=== PATIENT | female | born 2000 | race Caucasian/White ===

== ENCOUNTER 2021-09-16 20:23 | Observation (INO) | payer OTHER ==
[2021-09-16 21:17] LABS: CLARITY URINE CLEAR (CLEAR); COLOR URINE YELLOW (YELLOW); KETONES URINE NEGATIVE (NEGATIVE); LEUKOCYTE ESTERASE URINE NEGATIVE (NEGATIVE); NITRITE URINE NEGATIVE (NEGATIVE); OCCULT BLOOD URINE NEGATIVE (NEGATIVE); PH URINE 6.5 (4.5-8.0); PROTEIN URINE NEGATIVE (NEGATIVE); SPECIFIC GRAVITY URINE 1.008 (1.005-1.030); UROBILINOGEN URINE 0.2 E.U./dL (0.2-1.0)
== END 2021-09-16 22:02 | disposition home or self-care (01) ==
LOC: 8 EST LDRP 20:23
PROVIDERS: ADMIT Obstetrics & Gynecology; ATTEND Obstetrics & Gynecology
DX: O26.892 Other specified pregnancy related conditions, second trimester (principal); R10.9 Unspecified abdominal pain; Z3A.25 25 weeks gestation of pregnancy
CPT/HCPCS: 59025; 81003; G0378; 99281

== ENCOUNTER 2021-12-09 06:13 | Inpatient (IN) | payer MEDICAID, OTHER ==
[~2021-12-09] VITALS: Ht 157.5 cm; Wt 68.0 kg
[2021-12-09] MEDS ORDERED: PENICILLIN G POTASSIUM 5 MMU in DEXT 5% WATER 100 ML IV SCH (07:15)
[2021-12-09] MEDS ORDERED: BUTORPHANOL TARTRATE 2 MG/ML VIAL IV PRN (07:15)
[2021-12-09] MEDS ORDERED: NALOXONE HCL 0.4 MG/ML 1ML VIAL IM PRN (07:15)
[2021-12-09] MEDS ORDERED: METHYLERGONOVINE MALEATE 0.2 MG/ML IM PRN (07:15)
[2021-12-09] MEDS ORDERED: LIDOCAINE HCL 1% 20ML VIAL (Pyxis) INJ INFIL SCH (07:15)
[2021-12-09] MEDS ORDERED: CARBOPROST TROMETHAMINE 250 MCG/ML AMPUL IM PRN (07:15)
[2021-12-09] MEDS ORDERED: LABETALOL HCL 5MG/ML VIAL 20ML IV PRN ×3 (08:15)
[2021-12-09] MEDS ORDERED: MAGNESIUM 2 G PREMIX 50 ML IV SCH (08:15)
[2021-12-09] MEDS ORDERED: MAGNESIUM 4 G PREMIX 100 ML IV SCH (08:15)
[2021-12-09] MEDS ORDERED: MAGNESIUM 20 G PREMIX (L & D) 500 ML IV SCH (08:15)
[2021-12-09 08:25] LABS: HEMATOCRIT. 30.8 % (36.0-48.0); HEMOGLOBIN. 9.6 g/dL (12.0-16.0); MEAN CORPUSCULAR HEMOGLOBIN 21.6 pg (28.0-32.0); MEAN CORPUSCULAR VOLUME 69.1 fL (81.0-99.0); MEAN PLATELET VOLUME 7.5 fl (7.4-10.4); PLATELET 242 x1000/uL (130-400); RED BLOOD CELL COUNT 4.45 mill/uL (4.2-5.4); RED CELL DISTRIBUTION WIDTH 16.9 % (11.6-14.6)
[2021-12-09 08:28] LABS: CHLORIDE 108 mEq/L (98-107)
[2021-12-09] MEDS: LACTATED RINGERS 1,000 ML IV SCH ×2 (08:39→12:26)
[2021-12-09 08:41] LABS: FIBRINOGEN 149 mg/dL (200-400); INR 1.1; PARTIAL THROMBOPLASTIN TIME 33.5 sec (23.4-31.0); PROTHROMBIN TIME 11.5 sec (9.6-11.0)
[2021-12-09 09:49] LABS: D-DIMER > 35.20 mg/L FEU (<0.50)
[2021-12-09 10:33] LABS: HEPATITIS B SURFACE ANTIGEN NEGATIVE
[2021-12-09 14:12] LABS: CLARITY URINE CLOUDY (CLEAR); COLOR URINE ORANGE (YELLOW); KETONES URINE NEGATIVE (NEGATIVE); LEUKOCYTE ESTERASE URINE 1+ (NEGATIVE); NITRITE URINE NEGATIVE (NEGATIVE); OCCULT BLOOD URINE 3+ (NEGATIVE); PH URINE 7.5 (4.5-8.0); PROTEIN URINE 4+ (NEGATIVE); SPECIFIC GRAVITY URINE 1.018 (1.005-1.030); UROBILINOGEN URINE 0.2 E.U./dL (0.2-1.0)
[2021-12-09] MEDS ORDERED: TERBUTALINE SULFATE 1MG/ML VIAL SUBCUT PRN (14:45)
[2021-12-09 15:01] LABS: *AMPHETAMINES SCREEN URINE NEGATIVE (NEGATIVE); *BARBITURATES SCREEN URINE NEGATIVE (NEGATIVE); *BENZODIAZEPINES SCREEN URINE NEGATIVE (NEGATIVE); *COCAINE SCREEN URINE NEGATIVE (NEGATIVE); CANNABINOID URINE SCREEN NEGATIVE (NEGATIVE); METHADONE URINE SCREEN NEGATIVE (NEGATIVE); OPIATES URINE SCREEN NEGATIVE (NEGATIVE); PHENCYCLIDINE URINE SCREEN NEGATIVE (NEGATIVE)
[2021-12-09 15:13] LABS: PLATELET ESTIMATE NORMAL
[2021-12-09] MEDS: PENICILLIN G POTASSIUM 2.5 MMU in DEXTROSE 5% WATER 50 ML IV SCH (19:38)
[2021-12-10] MEDS: PENICILLIN G POTASSIUM 2.5 MMU in DEXTROSE 5% WATER 50 ML IV SCH ×4 (00:08→13:30)
[2021-12-10] MEDS: LACTATED RINGERS 1,000 ML IV SCH ×2 (00:30→13:31)
[2021-12-10] MEDS: LABETALOL HCL 100MG TABLET PO SCH ×2 (08:15→20:20)
[2021-12-10] MEDS ORDERED: LABETALOL HCL 100MG TABLET PO SCH ×2 (09:00→19:40)
[2021-12-10] MEDS: SIMETHICONE 80MG TABLET CHEW PO SCH (09:00)
[2021-12-10] MEDS ORDERED: LABETALOL HCL 5MG/ML VIAL 20ML IV PRN ×3 (11:45)
[2021-12-10] MEDS ORDERED: FENTANYL CITRATE/PF 50MCG/ML 2ML VIAL ONE (14:43)
[2021-12-10] MEDS ORDERED: EPHEDRINE SULFATE 50MG/ML VIAL ONE (14:44)
[2021-12-10] MEDS ORDERED: MORPHINE SULFATE/PF 1MG/ML 10ML AMP ONE (14:44)
[2021-12-10] MEDS ORDERED: CEFAZOLIN SODIUM 1000MG/VIAL ONE ×2 (14:44→14:51)
[2021-12-10] MEDS ORDERED: ONDANSETRON HCL 4MG/2ML INJ ONE ×2 (14:45→16:09)
[2021-12-10] MEDS ORDERED: BUPIVACAINE HCL/DEXTROSE/PF 0.75% 2ML AMP INJ ONE (14:45)
[2021-12-10] MEDS ORDERED: PHENYLEPHRINE HCL 10 MG/ML 1ML (IV VIAL) IV ONE (14:45)
[2021-12-10] MEDS ORDERED: OXYTOCIN 10 UNITS/ML 1ML ONE ×2 (14:51→16:00)
[2021-12-10] MEDS ORDERED: SODIUM CHLORIDE 0.9% 10ML VIAL ONE (14:54)
[2021-12-10] MEDS ORDERED: CITRIC ACID/SODIUM CITRATE SOLN 30ML UDC PO NR (15:15)
[2021-12-10 15:16] LABS: BASOPHILS % 0.5 % (0.0-2.0); EOSINOPHILS % 0.2 % (0.0-5.0); HEMATOCRIT. 25.6 % (36.0-48.0); HEMOGLOBIN. 7.9 g/dL (12.0-16.0); LYMPHOCYTES % 8.9 % (20.0-50.0); MEAN CORPUSCULAR VOLUME 71.2 fL (81.0-99.0); MEAN PLATELET VOLUME 9.4 fl (7.4-10.4); MONOCYTES % 5.8 % (2.0-8.0); NEUTROPHILS % 84.6 % (40.0-76.0); PLATELET 96 x1000/uL (130-400); RED BLOOD CELL COUNT 3.59 mill/uL (4.2-5.4)
[2021-12-10 15:23] LABS: CHLORIDE 107 mEq/L (98-107)
[2021-12-10 15:41] LABS: D-DIMER 29.55 mg/L FEU (<0.50); INR 0.9; PARTIAL THROMBOPLASTIN TIME 28.9 sec (23.4-31.0); PROTHROMBIN TIME 9.6 sec (9.6-11.0)
[2021-12-10] MEDS ORDERED: MISOPROSTOL 200MCG TABLET ONE (16:00)
[2021-12-10] MEDS ORDERED: METOCLOPRAMIDE HCL 10MG/2ML VIAL ONE (16:10)
[2021-12-10] MEDS ORDERED: DIPHENHYDRAMINE 50MG/ML VIAL ONE (16:34)
[2021-12-10] MEDS ORDERED: PROPOFOL 200MG/20ML VIAL IV ONE (16:44)
[2021-12-10] MEDS ORDERED: HYDROCODONE/ACETAMINOPHEN 5/325MG TABLET PO PRN (17:00)
[2021-12-10] MEDS ORDERED: DIPHENHYDRAMINE 25MG CAPSULE PO PRN (17:00)
[2021-12-10] MEDS ORDERED: IBUPROFEN 400MG TABLET PO PRN (17:00)
[2021-12-10] MEDS ORDERED: BISACODYL 10MG SUPP PR PRN (17:00)
[2021-12-10] MEDS ORDERED: LANOLIN OINT 7GM TUBE TOP PRN (17:00)
[2021-12-10] MEDS ORDERED: HYDROMORPHONE HCL/PF 2MG/ML CPJ IM PRN (17:00)
[2021-12-10] MEDS ORDERED: ONDANSETRON HCL 4MG/2ML INJ IV PRN (17:00)
[2021-12-10] MEDS ORDERED: OXYTOCIN 30 UNITS/500ML NS PMX 500 ML IV SCH (17:00)
[2021-12-10] MEDS ORDERED: NALOXONE HCL 0.4 MG/ML 1ML VIAL IV PRN (17:30)
[2021-12-10] MEDS ORDERED: DIPHENHYDRAMINE 50MG/ML VIAL IV PRN (17:30)
[2021-12-10] MEDS ORDERED: BUTORPHANOL TARTRATE 2 MG/ML VIAL IV PRN (17:30)
[2021-12-10] MEDS: OXYTOCIN 30 UNITS/500ML NS PMX 500 ML IV SCH (18:05)
[2021-12-10] MEDS ORDERED: MISOPROSTOL 200MCG TABLET RC NR (19:00)
[2021-12-10 19:14] LABS: BASOPHILS % 0.5 % (0.0-2.0); EOSINOPHILS % 0.1 % (0.0-5.0); LYMPHOCYTES % 7.2 % (20.0-50.0); MEAN CORPUSCULAR HEMOGLOBIN 21.6 pg (28.0-32.0); MEAN CORPUSCULAR VOLUME 70.1 fL (81.0-99.0); MEAN PLATELET VOLUME 9.4 fl (7.4-10.4); MONOCYTES % 4.4 % (2.0-8.0); NEUTROPHILS % 87.8 % (40.0-76.0); PLATELET 94 x1000/uL (130-400); RED CELL DISTRIBUTION WIDTH 17.6 % (11.6-14.6)
[2021-12-10 19:26] LABS: CHLORIDE 109 mEq/L (98-107)
[2021-12-10 19:43] LABS: HEMATOCRIT. 20.3 % (36.0-48.0); HEMOGLOBIN. 6.2 g/dL (12.0-16.0)
[2021-12-11 01:50] LABS: HEMATOCRIT 22.5 % (36.0-48.0); HEMOGLOBIN 7.3 g/dL (12.0-16.0)
[2021-12-11 04:05] VITALS: BP 131/86
[2021-12-11] MEDS: OXYTOCIN 30 UNITS/500ML NS PMX 500 ML IV SCH (04:30)
[2021-12-11] MEDS ORDERED: MAGNESIUM 1 G PREMIX 100 ML IV ONE ×2 (07:00)
[2021-12-11] MEDS ORDERED: MAGNESIUM 20 G PREMIX (L & D) 500 ML IV SCH (07:00)
[2021-12-11] MEDS: MAGNESIUM/ALUMINUM HYDROXIDE/SIMETHICONE 30ML UDC PO SCH ×5 (07:30→21:19)
[2021-12-11 07:59] VITALS: BP 130/83
[2021-12-11 08:20] LABS: BASOPHILS % 0.8 % (0.0-2.0); EOSINOPHILS % 0.2 % (0.0-5.0); LYMPHOCYTES % 11.5 % (20.0-50.0); MEAN CORPUSCULAR HEMOGLOBIN 23.4 pg (28.0-32.0); MEAN CORPUSCULAR VOLUME 73.1 fL (81.0-99.0); MEAN PLATELET VOLUME 9.1 fl (7.4-10.4); MONOCYTES % 7.9 % (2.0-8.0); NEUTROPHILS % 79.6 % (40.0-76.0); PLATELET 73 x1000/uL (130-400); RED BLOOD CELL COUNT 2.48 mill/uL (4.2-5.4); RED CELL DISTRIBUTION WIDTH 21.2 % (11.6-14.6)
[2021-12-11 08:29] LABS: CHLORIDE 107 mEq/L (98-107)
[2021-12-11 08:33] LABS: HEMATOCRIT. 18.2 % (36.0-48.0); HEMOGLOBIN. 5.8 g/dL (12.0-16.0)
[2021-12-11] MEDS: LABETALOL HCL 100MG TABLET PO SCH ×2 (08:58→21:15)
[2021-12-11] MEDS: PRENATAL VIT/FE FUMARATE/FA TABLET PO SCH (09:00)
[2021-12-11] MEDS: FERROUS SULFATE 325MG TABLET PO SCH ×2 (09:00→13:52)
[2021-12-11 12:05] VITALS: BP 118/76
[2021-12-11] MEDS: SIMETHICONE 80MG TABLET CHEW PO SCH ×4 (12:50→21:14)
[2021-12-11] MEDS: IBUPROFEN 800MG TABLET PO PRN ×2 (13:58→21:16)
[2021-12-11 15:53] VITALS: BP 123/77
[2021-12-11 19:30] VITALS: BP 132/76
[2021-12-11] MEDS: DOCUSATE SODIUM 100MG CAPSULE PO SCH (21:13)
[2021-12-12] VITALS: BP 128/72
[2021-12-12 04:00] VITALS: BP 113/70
[2021-12-12] MEDS: MAGNESIUM/ALUMINUM HYDROXIDE/SIMETHICONE 30ML UDC PO SCH ×4 (07:30→21:13)
[2021-12-12 08:00] VITALS: BP 118/71
[2021-12-12] MEDS: SIMETHICONE 80MG TABLET CHEW PO SCH ×4 (08:00→21:13)
[2021-12-12] MEDS: FERROUS SULFATE 325MG TABLET PO SCH ×3 (08:51→18:11)
[2021-12-12] MEDS: PRENATAL VIT/FE FUMARATE/FA TABLET PO SCH (08:51)
[2021-12-12] MEDS: IBUPROFEN 800MG TABLET PO PRN ×2 (08:51→18:15)
[2021-12-12] MEDS: LABETALOL HCL 100MG TABLET PO SCH ×2 (08:51→21:13)
[2021-12-12 12:00] VITALS: BP 113/70
[2021-12-12 16:00] VITALS: BP 119/76
[2021-12-12 20:00] VITALS: BP 125/86
[2021-12-12] MEDS: DOCUSATE SODIUM 100MG CAPSULE PO SCH (21:13)
[2021-12-13] VITALS (13 sets, daily range): BP systolic 114–132; BP diastolic 75–88
[2021-12-13] MEDS: MAGNESIUM/ALUMINUM HYDROXIDE/SIMETHICONE 30ML UDC PO SCH ×3 (08:22→20:07)
[2021-12-13] MEDS: FERROUS SULFATE 325MG TABLET PO SCH ×2 (08:23→13:50)
[2021-12-13] MEDS: SIMETHICONE 80MG TABLET CHEW PO SCH ×3 (08:23→20:07)
[2021-12-13] MEDS: PRENATAL VIT/FE FUMARATE/FA TABLET PO SCH (08:23)
[2021-12-13] MEDS: IBUPROFEN 800MG TABLET PO PRN ×3 (08:23→20:07)
[2021-12-13] MEDS: LABETALOL HCL 100MG TABLET PO SCH ×2 (08:24→21:14)
[2021-12-13 10:45] LABS: BASOPHILS % 0.6 % (0.0-2.0); EOSINOPHILS % 2.1 % (0.0-5.0); MEAN CORPUSCULAR HEMOGLOBIN 23.7 pg (28.0-32.0); MEAN CORPUSCULAR VOLUME 75.3 fL (81.0-99.0); MEAN PLATELET VOLUME 8.9 fl (7.4-10.4); MONOCYTES % 5.5 % (2.0-8.0); NEUTROPHILS % 81.8 % (40.0-76.0); PLATELET 132 x1000/uL (130-400); RED BLOOD CELL COUNT 2.05 mill/uL (4.2-5.4); RED CELL DISTRIBUTION WIDTH 22.5 % (11.6-14.6)
[2021-12-13 10:51] LABS: HEMATOCRIT. 15.5 % (36.0-48.0); HEMOGLOBIN. 4.9 g/dL (12.0-16.0)
[2021-12-13] MEDS: DOCUSATE SODIUM 100MG CAPSULE PO SCH (20:07)
[2021-12-14 03:30] VITALS: BP 119/80
[2021-12-14 06:47] LABS: HEMATOCRIT. 23.3 % (36.0-48.0); HEMOGLOBIN. 7.6 g/dL (12.0-16.0); MEAN CORPUSCULAR HEMOGLOBIN 25.4 pg (28.0-32.0); MEAN CORPUSCULAR VOLUME 77.6 fL (81.0-99.0); MEAN PLATELET VOLUME 8.6 fl (7.4-10.4); PLATELET 154 x1000/uL (130-400); RED BLOOD CELL COUNT 3.01 mill/uL (4.2-5.4); RED CELL DISTRIBUTION WIDTH 21.3 % (11.6-14.6)
[2021-12-14] MEDS ORDERED: IBUP-2030 MT (06:59)
[2021-12-14 07:30] VITALS: BP 128/86
[2021-12-14] MEDS: IBUPROFEN 800MG TABLET PO PRN (10:19)
[2021-12-14] MEDS: PRENATAL VIT/FE FUMARATE/FA TABLET PO SCH (10:19)
[2021-12-14] MEDS: FERROUS SULFATE 325MG TABLET PO SCH (10:19)
[2021-12-14] MEDS: SIMETHICONE 80MG TABLET CHEW PO SCH (10:20)
[2021-12-14] MEDS: LABETALOL HCL 100MG TABLET PO SCH (10:20)
[2021-12-14] MEDS: MAGNESIUM/ALUMINUM HYDROXIDE/SIMETHICONE 30ML UDC PO SCH (10:21)
[2021-12-14 17:09] LABS: PLATELET ESTIMATE NORMAL
== END 2021-12-14 12:00 | disposition home or self-care (01) | DRG 540 ==
LOC: 8 EST LDRP 06:13 → OBSVTOIN 06:13 → 8EST 12-11 04:05
PROVIDERS: ADMIT Obstetrics & Gynecology; ATTEND Obstetrics & Gynecology
PROC: 10D00Z1 Extraction of Products of Conception, Low, Open Approach (ICD-10-PCS; principal; 2021-12-10)
PROC: 30233N1 Transfusion of Nonautologous Red Blood Cells into Peripheral Vein, Percutaneous Approach (ICD-10-PCS; 2021-12-10)
DX: O13.4 Gestational [pregnancy-induced] hypertension without significant proteinuria, complicating childbirth (principal); D69.6 Thrombocytopenia, unspecified; O99.12 Other diseases of the blood and blood-forming organs and certain disorders involving the immune mechanism complicating childbirth; Z20.822 Contact with and (suspected) exposure to COVID-19; O69.81X0 Labor and delivery complicated by cord around neck, without compression, not applicable or unspecified; O77.0 Labor and delivery complicated by meconium in amniotic fluid; O99.02 Anemia complicating childbirth; O76 Abnormality in fetal heart rate and rhythm complicating labor and delivery; Z3A.37 37 weeks gestation of pregnancy; Z37.0 Single live birth
CPT/HCPCS: 36415; 76805; 76818; 80053; 80305; 81003; 83735; 84550; 85014; 85018; 85025; 85379; 85384; 86592; 86703; 86762; 86850; 86900; 86920; 87340; 87426; 88307; 99281; G0378; J0690; J1200; J2274; J2370; J2405; J2540; J2704; J2765; J3010; J3475; J3490; J7040; J7060; J7120; P9016; J2590